=== PATIENT | male | born 1985 | race African-American/Black ===

== ENCOUNTER 2020-08-13 03:01 | Emergency (ER) | payer MEDICAID ==
[~2020-08-13] VITALS: Ht 182.9 cm; Wt 113.0 kg
[~2020-08-13 03:01] MED LIST: FLUC200T51
[2020-08-13] MEDS ORDERED: LABETALOL 5MG/ML SYR 20 MG/4 ML SYRINGE IV ONE ×2 (04:30→05:45)
[2020-08-13] MEDS ORDERED: NICARDIPINE 50 MG in SODIUM CHLORIDE 0.9% 230 ML IV PRN (04:30)
[2020-08-13 04:41] LABS: BASOPHILS % 0.7 % (0.0-2.0); EOSINOPHILS % 0.6 % (0.0-5.0); HEMATOCRIT. 45.5 % (42.0-52.0); LYMPHOCYTES % 30.4 % (20.0-50.0); MEAN CORPUSCULAR HEMOGLOBIN 31.3 pg (28.0-32.0); MEAN CORPUSCULAR VOLUME 94.9 fL (80.0-94.0); MEAN PLATELET VOLUME 7.4 fl (7.4-10.4); MONOCYTES % 4.8 % (2.0-8.0); NEUTROPHILS % 63.5 % (40.0-76.0); PLATELET 257 x1000/uL (130-400)
[2020-08-13 04:49] LABS: CHLORIDE 106 mEq/L (98-107)
[2020-08-13 04:53] LABS: ETHANOL BLOOD 125 mg/dL
[2020-08-13 05:01] LABS: BG BASE EXCESS -3.3 mmol/L (-2.0-2.0); BG CARBOXYHEMOGLOBIN 0.3 % (0.5-1.5); BG DEOXYHEMOGLOBIN 5.3 % (0.0-5.0); BG FRACTION INSPIRED OXYGEN 21; BG HCO3 ACT 21.4 mmol/L (22.0-26.0); BG METHEMOGLOBIN 0.9 % (0.0-1.5); BG OXYGEN SATURATION 94.6 % (92.0-98.5); BG OXYHEMOGLOBIN 93.5 % (94.0-97.0); BG PCO2 37.2 mmHg (35.0-45.0); BG PH 7.377 (7.350-7.450); BG TOTAL HEMOGLOBIN 14.1 g/dL (12.0-18.0); BG VENT MODE ROOM AIR
[2020-08-13 05:28] LABS: CLARITY URINE CLEAR (CLEAR); COLOR URINE YELLOW (YELLOW); KETONES URINE NEGATIVE (NEGATIVE); LEUKOCYTE ESTERASE URINE NEGATIVE (NEGATIVE); NITRITE URINE NEGATIVE (NEGATIVE); OCCULT BLOOD URINE NEGATIVE (NEGATIVE); PROTEIN URINE NEGATIVE (NEGATIVE); SPECIFIC GRAVITY URINE 1.018 (1.005-1.030); UROBILINOGEN URINE 0.2 E.U./dL (0.2-1.0)
[2020-08-13 05:37] LABS: *BARBITURATES SCREEN URINE NEGATIVE (NEGATIVE); *BENZODIAZEPINES SCREEN URINE NEGATIVE (NEGATIVE); *COCAINE SCREEN URINE NEGATIVE (NEGATIVE); METHADONE URINE SCREEN NEGATIVE (NEGATIVE); OPIATES URINE SCREEN NEGATIVE (NEGATIVE)
[2020-08-13 05:38] LABS: *AMPHETAMINES SCREEN URINE PRESUMTIVE POSITIVE (NEGATIVE); CANNABINOID URINE SCREEN NEGATIVE (NEGATIVE); PHENCYCLIDINE URINE SCREEN NEGATIVE (NEGATIVE)
[2020-08-13] MEDS ORDERED: METOPROLOL TARTRATE 25MG TABLET PO ONE (05:45)
[2020-08-13] MEDS ORDERED: NICARDIPINE 40 MG/200 ML PREMIX 200 ML IV PRN (06:00)
[2020-08-13] MEDS ORDERED: LORAZEPAM 2MG/ML CPJ IV PRN (08:15)
[2020-08-13] MEDS ORDERED: ACETAMINOPHEN 325MG TABLET PO PRN (08:15)
[2020-08-13] MEDS ORDERED: ONDANSETRON HCL 4MG/2ML INJ IV PRN (08:15)
[2020-08-13] MEDS ORDERED: LOSARTAN POTASSIUM 100 MG TABLET PO SCH (09:00)
[2020-08-13] MEDS ORDERED: METOPROLOL TARTRATE 25MG TABLET PO SCH (09:00)
[2020-08-13] MEDS ORDERED: FOLIC ACID 1 MG, THIAMINE HCL 100 MG, MVI, ADULT NO.1 10 ML in DEXTROSE 5% WATER 1,000 ML IV ONE ×4 (09:00)
[2020-08-13 11:45] VITALS: BP 147/78
== END 2020-08-13 12:11 | disposition left against medical advice (07) ==
LOC: ER 03:01 → EDBEDREQTM 06:26 → EDBEDREQ 06:26 → EDBEDREQSVC 09:09 → CANBEDREQ 12:06 → ER 12:11
DX: I16.0 Hypertensive urgency (principal); G90.8 Other disorders of autonomic nervous system; E66.9 Obesity, unspecified; F15.10 Other stimulant abuse, uncomplicated; F10.129 Alcohol abuse with intoxication, unspecified; Y90.9 Presence of alcohol in blood, level not specified; Z68.33 Body mass index [BMI] 33.0-33.9, adult
CPT/HCPCS: 36415; 36600; 70450; 71045; 80053; 80305; 80307; 80320; 80329; 81003; 82375; 82805; 82962; 83605; 85025; 86850; 86900; 86901; 93005; 96365; 96375; 96376; 99285; J3411; J3490; J7070; Z7610; G0480

== ENCOUNTER 2025-05-12 12:20 | Emergency (ER) | payer MEDICAID, OTHER ==
[~2025-05-12] VITALS: Ht 180.3 cm; Wt 107.0 kg
[2025-05-12 12:28] VITALS: O2SAT 100
[2025-05-12] MEDS: KETOROLAC 30MG/ML VIAL IM ONE (14:44)
[2025-05-12] MEDS ORDERED: KETO10TA2 MT (15:48)
[2025-05-12] MEDS ORDERED: LIDO700A30 TP (15:48)
[2025-05-12] MEDS ORDERED: CYCL10TA21 MT (15:48)
[2025-05-12 16:12] VITALS: BP 130/100; PULSE 65; RESP 17; TEMP 36.7; O2SAT 99
== END 2025-05-12 16:13 | disposition home or self-care (01) ==
LOC: ER 12:20
DX: M79.652 Pain in left thigh (principal); Z79.899 Other long term (current) drug therapy
CPT/HCPCS: 73552; 96372; 99283; J1885; Z7610